=== PATIENT | male | born 1955 | race African-American/Black ===

== ENCOUNTER 2016-06-02 06:34 | Day surgery (SDC) | payer OTHER ==
--- NOTE | ~2016-06-02 | EGD ---
EGD REPORT [facility] [address] [place] [address] NAME: LONNY MORRIS : 53 STATUS : REG [facility] PAT#: [id number] AGE: 60 ADM/REG DATE : 06/02/16 MR#: [id number] REPORT SERV DATE: 06/02/16 DICTATED BY: FREDDIE MNOTAÑO DATE: 06/02/16 REPORT STATUS : Draft TRANSCRIBED BY: [employer] DATE: 06/02/16 [facility] Patient Name: Lonny Morris Date of : 1955 Attending MD: FREDDIE MONTAÑO, Procedure Date No Time: 06/02/2016 Procedure: Upper GI endoscopy Indications: Lewis's high grade dysplasia, Follow-up of previous ablation treatment of Lewis's esophagus Referring MD: RUSTY IZAGUIRRE MD, TG MULLER MD Medicines: Monitored Anesthesia Care Complications: No immediate complications. Estimated blood loss: None. Procedure: Pre-Anesthesia Assessment: - ASA Grade Assessment: III - A patient with severe systemic disease. After obtaining informed consent, the endoscope was passed under direct vision. Throughout the procedure, the patient's blood pressure, pulse, and oxygen saturations were monitored continuously. The GIF [id number] was introduced through the mouth, and advanced to the second part of duodenum. The upper GI endoscopy was accomplished without difficulty. Findings: The esophagus and gastroesophageal junction were examined with white light. Lewis's esophagus was present, extending from the upper extent of the gastric folds which were at 37 cm from the incisors. Islands of salmon-colored mucosa were present from 33 to 37 cm. Focal radiofrequency ablation of Lewis's esophagus was performed. With the endoscope in place, the position and extent of the Lewis's mucosa and the anatomic landmarks were noted. The endoscope was then removed from the patient. The Halo radiofrequency ablation catheter was attached to the tip of the endoscope. The endoscope with the attached radiofrequency ablation catheter was then passed transorally under direct vision into the esophagus and advanced to the areas of Lewis's mucosa. The areas included islands of Lewis's mucosa. The radiofrequency ablation catheter was placed in contact with the surface of the Lewis's mucosa under direct visualization and energy was applied twice at 12 J/cm2. Ablation was repeated in a likewise fashion to all visible Lewis's mucosa. The ablation zone was cleaned of coagulative debris. The ablation catheter and endoscope were then removed and the catheter was cleaned. The catheter and endoscope were reinserted into the esophagus. A second round of ablation was then performed. Energy was applied twice at 12 J/cm2 to retreat the areas of Lewis's epithelium that had been treated with the first series of ablation. The areas of the esophagus EGD REPORT [address] [place]. [address] NAME: LONNY MORRIS JR : 53 STATUS : REG [facility] PAT#: [id number] AGE: 60 ADM/REG DATE : 06/02/16 MR#: [id number] REPORT SERV DATE: 06/02/16 DICTATED BY: FREDDIE MONTAÑO DATE: 06/02/16 REPORT STATUS : Draft TRANSCRIBED BY: [employer] DATE: 06/02/16 where Lewis's mucosa had been ablated were carefully examined. Areas of Lewis's esophagus were completely treated. A 3 cm hiatus hernia was present. The exam of the stomach was otherwise normal. The examined duodenum was normal. Impression: - Lewis's esophagus. Treated with radiofrequency ablation. - Hiatus hernia. - Normal examined duodenum. Recommendation: - Patient has a contact number available for emergencies. The signs and symptoms of potential delayed complications were discussed with the patient. Return to normal activities tomorrow. Written discharge instructions were provided to the patient. - Return to previous diet. - Continue present medications. - Use Prilosec (omeprazole) 40 mg PO BID. - Repeat the upper endoscopy in 3 months for retreatment. Procedure Code(s): --- Professional --- 18837, Esophagogastroduodenoscopy, flexible, transoral; with ablation of tumor(s), polyp(s), or other lesion(s) (includes pre- and post-dilation and guide wire passage, when performed) Diagnosis Code(s): --- Professional --- K44.9, Diaphragmatic hernia without obstruction or gangrene K22.711, Lewis's esophagus with high grade dysplasia Z09, Encounter for follow-up examination after completed treatment for conditions other than malignant neoplasm CPT copyright 2013 [employer]. All rights reserved. The codes documented in this report are preliminary and upon crown and bridge dental lab technician review may be revised to meet current compliance requirements. FREDDIE MONTAÑO, 06/02/2016 9:28 AM Number of Addenda: 0 Note Initiated On: 06/02/2016 8:59 AM Scope Withdrawal Time 0 hours 0 minutes 0 seconds EGD REPORT [place] [address] [address] NAME: LONNY MORRIS JR : 53 STATUS : REG [facility]#: [id number] AGE: 60 ADM/REG DATE : 06/02/16 MR#: [id number] REPORT SERV DATE: 06/02/16 DICTATED BY: FREDDIE MONTAÑO DATE: 06/02/16 REPORT STATUS : Draft TRANSCRIBED BY: [employer] DATE: 06/02/16 [facility] [address] [id number]
[~2016-06-02 06:34] MED LIST: ANDROGEL5 TOP; ASAB PO; ATEN100 PO; CARDCD240 PO; COZ50 PO; DEPO-TESTOS100 MG/ML IM; DHE1 PO; EZFE 200200 MG PO; GERITOL PO; INDO50 PO; LOZOLTAB PO; MAX25 PO; METANX PO; P20 PO; POT GLUCONAT550 M1 OR; PRAVACHOL40 MG PO; PRILOSEC40 MG PO; TENORETIC1 TA1 PO; VIB100 PO; Z100 PO; Z300 PO; [UNRECOGNIZED DRUG - OTHER]; [UNRECOGNIZED DRUG - OTHER]; [UNRECOGNIZED DRUG - OTHER]
== END 2016-06-02 23:59 | disposition home health service (06) ==
LOC: DMU 06:34
PROVIDERS: Internal Medicine Gastroenterology
PROC: 0D548ZZ Destruction of Esophagogastric Junction, Via Natural or Artificial Opening Endoscopic (ICD-10-PCS; principal; 2016-06-02 09:30)
DX: K22.711 Barrett's esophagus with high grade dysplasia (principal); K44.9 Diaphragmatic hernia without obstruction or gangrene; I10 Essential (primary) hypertension; M19.90 Unspecified osteoarthritis, unspecified site; G47.33 Obstructive sleep apnea (adult) (pediatric); K21.9 Gastro-esophageal reflux disease without esophagitis; E66.01 Morbid (severe) obesity due to excess calories; Z77.22 Contact with and (suspected) exposure to environmental tobacco smoke (acute) (chronic); Z99.81 Dependence on supplemental oxygen